=== PATIENT | female | born 1955 | race Caucasian/White ===

== ENCOUNTER 2020-11-18 12:59 | Emergency (ER) | payer OTHER, SELFPAY ==
[2020-11-18 13:08] VITALS: BP 122/71; PULSE 87; RESP 14; TEMP 36.7; O2SAT 98
[2020-11-18 13:29] VITALS: BP 122/71; PULSE 87; RESP 14; TEMP 36.7; O2SAT 98
--- NOTE | 2020-11-18 14:08 | ED.FEMALEGU ---
HPI - Female Genitourinary General Chief complaint: Urogenital-Female Stated complaint: Headache, rapid pulse, shortness of breath Time Seen by Provider: 11/18/20 14:09 Source: patient and RN notes reviewed Mode of arrival: ambulatory Limitations: no limitations History of Present Illness HPI Narrative: 65-year-old female presents with concern for urinary tract infection and possible reaction to Macrobid. Reports she called her physician and was prescribed Macrobid over the phone for possible urinary tract infection. She did not leave urine sample or have a culture for that diagnosis. She reports after taking 1 dose she had fast heartbeat, headache, shortness of breath for short period of time. She did not take any subsequent doses of Macrobid. She reports dysuria, frequency, urgency, difficulty urinating. She denies abdominal pain, fever, back pain. MD elicited complaint: UTI Related Data Home Medications Medication Instructions Recorded Confirmed amlodipine 5 mg PO DAILY 11/18/20 11/18/20 cholecalciferol (vitamin D3) 125 mcg PO DAILY 11/18/20 11/18/20 [Vitamin D3] clonidine HCl 0.2 mg PO DAILY 11/18/20 11/18/20 losartan 50 mg PO DAILY 11/18/20 11/18/20 Allergies Allergy/AdvReac Type Severity Reaction Status Date / Time codeine Allergy Intermediate Agitated Verified 11/18/20 13:26 nitrofurantoin Allergy Mild Fast Verified 11/18/20 14:23 [From Macrobid] heartbeat Review of Systems Review of Systems: CONSTITUTIONAL: Denies malaise, chills, sweats, or fever. CARDIOVASCULAR: Denies current chest pain, current palpitations, or edema.. Reports ago fast heartbeat yesterday. RESPIRATORY: Denies cough. Reports episode of dyspnea yesterday. GASTROINTESTINAL: Denies abdominal pain, nausea, vomiting, diarrhea, bloody, or mucous stools. GENITOURINARY: Reports dysuria frequency, urgency. Denies flank pain hematuria. MUSCULOSKELETAL: Denies back pain or myalgia. NEUROLOGIC: Reports headache. All systems reviewed & are unremarkable except as noted in HPI and below PMFSH Past Medical History Medical History (Updated 11/18/20 @ 14:21 by Nohemi Mackay NP) Anxiety Arthritis Depression Endometriosis GERD (gastroesophageal reflux disease) HTN (hypertension) Migraines Post-menopausal Seasonal allergies Surgical History Surgical History History of appendectomy History of cholecystectomy History of tubal ligation Family History Family History Mother Family history of lung cancer Father Family history of emphysema Sibling Family history of emphysema Social History Social History Alcohol intake: never Comments At time of signature, agree with nursing past medical, surgical, social and family history. There is no relevant family history pertinent to the presenting complaint Exam Narrative: GENERAL: Well-appearing, well-nourished, and in no acute distress. HEAD: Normocephalic. EYES: PERRLA, conjunctivae clear. NECK: Supple. No lymphadenopathy CHEST: Clear to auscultation. No respiratory distress. HEART: Regular rate and rhythm. ABDOMEN: Soft, nontender upon palpation, nondistended, normal active bowel sounds, no palpable or pulsatile masses, no guarding. No CVA tenderness SKIN: Warm, dry, no rash. NEURO: Alert and oriented x3. PSYCH: Normal mood and affect Course Course Emergency Course: Patient took a dose of abx, which may affect test results. Patient is aware of diagnosis, understands and agrees to treatment plan. Anticipatory guidance given. Patient agrees to follow-up as directed and is aware of reasons to seek care at the emergency department. Portions of this record may have been created with voice recognition software Vital Signs Vital signs: Vital Signs Temperature 98.1 F 11/18/20 13:08 Pulse Rate 87 11/18/20
== END 2020-11-18 14:39 | disposition home or self-care (01) ==
PROVIDERS: Emergency Provider Nurse Practitioner; PCP Nurse Practitioner Family
DX: R35.0 Frequency of micturition (principal); R30.0 Dysuria; R39.15 Urgency of urination; M19.90 Unspecified osteoarthritis, unspecified site; N80.9 Endometriosis, unspecified; K21.9 Gastro-esophageal reflux disease without esophagitis; I10 Essential (primary) hypertension
CPT/HCPCS: 81003; 87086; 87088; 99213; G0463

== ENCOUNTER 2022-05-05 12:21 | Emergency (ER) | payer OTHER, SELFPAY ==
--- NOTE | 2022-05-05 12:27 | ED.URI ---
HPI - URI/Sore Throat General Chief Complaint: Upper Respiratory Infection Stated Complaint: cold/ cough Time Seen by Provider: 05/05/22 12:27 Source: patient and RN notes reviewed History of Present Illness HPI Narrative: patient is a 66-year-old female who presents to the Urgent Care with complaints of persistent cough. Patient states has been ongoing for the last few days and she has been unable to sleep due to the harsh coughing. Patient has been using an old inhaler from 2019. Denies any ill exposures. Denies any chest tightness, fever, nausea or vomiting. No other acute complaints. No acute distress noted. Patient aware of the plan of care. Some parts of this dictation were generated by voice recognition software and may contain typographical and/or grammatical inaccuracies. Related Data Home Medications Medication Instructions Recorded Confirmed amlodipine 5 mg tablet 5 mg PO DAILY 11/18/20 05/05/22 cholecalciferol (vitamin D3) 125 125 mcg PO DAILY 11/18/20 05/05/22 mcg (5,000 unit) tablet (Vitamin D3) clonidine HCl 0.2 mg tablet 0.2 mg PO DAILY 11/18/20 05/05/22 losartan 50 mg tablet 50 mg PO DAILY 11/18/20 05/05/22 aspirin 81 mg capsule 81 mg PO DAILY 05/05/22 05/05/22 Allergies Allergy/AdvReac Type Severity Reaction Status Date / Time codeine Allergy Intermediate Agitated Verified 05/05/22 12:47 nitrofurantoin Allergy Mild Fast Verified 05/05/22 12:47 [From Macrobid] heartbeat Review of Systems Review of Systems: CONSTITUTIONAL: Denies fever, chills, or sweats. EYES: Denies visual changes, redness, or discharge. ENT: Denies rhinorrhea, congestion, sore throat, or otalgia. CARDIOVASCULAR: Denies chest pain, palpitations, or edema. RESPIRATORY: Reports persistent cough without dyspnea GASTROINTESTINAL: Denies abdominal pain, nausea, vomiting, or diarrhea. GENITOURINARY: Denies dysuria or hematuria. SKIN: Denies rash or itching. MUSCULOSKELETAL: Denies back pain, joint pain, or myalgia. NEUROLOGIC: Denies headache, numbness, or weakness. All other systems reviewed are negative, except as documented in HPI. [facility] Past Medical History Medical History (Updated 05/05/22 @ 13:07 by MANNY Wiseman) Anxiety Arthritis Depression Endometriosis GERD (gastroesophageal reflux disease) HTN (hypertension) Migraines Post-menopausal Seasonal allergies Surgical History Surgical History History of appendectomy History of cholecystectomy History of tubal ligation Family History Family History Mother Family history of lung cancer Father Family history of emphysema Sibling Family history of emphysema Social History Social History Alcohol intake: never Comments At the time of my signature, I reviewed and agree with the nursing past medical, surgical, social, and family history. There is no relevant family history pertinent to the patient complaint. Exam Narrative: GENERAL: This is a well-nourished, well-developed patient, in no apparent distress. HEAD: normocephalic, atraumatic. EYES: PERRL. Sclera clear/white. Vision is grossly intact. EARS: External ears normal, auditory canals clear and without drainage, TMs normal without perforation. Hearing grossly intact. NOSE: External nose normal with no obvious nasal discharge, nares without redness, no rhinorrhea. THROAT: Mucous membranes moist, posterior pharynx clear. moderate postnasal drainage NECK: Neck supple, non-tender without lymphadenopathy RESPIRATORY: Clear to auscultation. slight inspiratory wheeze clears with coughing SKIN: warm, intact with no suspicious lesions or rash, good texture and turgor. NEURO: awake, alert, and oriented to person, place and time. There were no obvious focal neurologic abnormalities. EXTREMITIES: No clubbing, cyanosis, or ellen
[2022-05-05 12:32] VITALS: BP 132/69; PULSE 81; RESP 20; TEMP 36.6; O2SAT 98
== END 2022-05-05 13:14 | disposition home or self-care (01) ==
PROVIDERS: Emergency Provider Nurse Practitioner Family; PCP Nurse Practitioner Family
DX: J40 Bronchitis, not specified as acute or chronic (principal); N80.9 Endometriosis, unspecified; K21.9 Gastro-esophageal reflux disease without esophagitis; I10 Essential (primary) hypertension; Z79.82 Long term (current) use of aspirin
CPT/HCPCS: 99213; G0463

== ENCOUNTER 2022-08-20 16:48 | Emergency (ER) | payer MEDICARE, MEDICAID, SELFPAY ==
[2022-08-20 16:56] VITALS: BP 141/80; PULSE 99; RESP 20; TEMP 37.2; O2SAT 98
--- NOTE | 2022-08-20 17:08 | ED.URI ---
HPI - URI/Sore Throat General Chief Complaint: Upper Respiratory Infection Stated Complaint: sore throat Time Seen by Provider: 08/20/22 17:08 History of Present Illness HPI Narrative: PATIENT PRESENTS WITH A SORE THROAT. NO TROUBLE SWALLOWING NO DROOLING NO FEVER. PATIENT IS CURRENTLY ON MACROBID FOR URINARY TRACT INFECTION. Related Data Home Medications Medication Instructions Recorded Confirmed amlodipine 5 mg tablet 5 mg PO DAILY 11/18/20 05/05/22 cholecalciferol (vitamin D3) 125 125 mcg PO DAILY 11/18/20 05/05/22 mcg (5,000 unit) tablet (Vitamin D3) clonidine HCl 0.2 mg tablet 0.2 mg PO DAILY 11/18/20 05/05/22 losartan 50 mg tablet 50 mg PO DAILY 11/18/20 05/05/22 aspirin 81 mg capsule 81 mg PO DAILY 05/05/22 05/05/22 nitrofurantoin 08/20/22 monohydrate/macrocrystals 100 mg capsule Allergies Allergy/AdvReac Type Severity Reaction Status Date / Time codeine Allergy Intermediate Agitated Verified 05/05/22 12:47 nitrofurantoin Allergy Mild Fast Verified 05/05/22 12:47 [From Macrobid] heartbeat Review of Systems Review of Systems: CONSTITUTIONAL: DENIES CHILLS, OR SWEATS. REPORTS FEVER AND GENERALIZED BODY ACHES EYES: DENIES VISUAL CHANGES, REDNESS, OR DISCHARGE. ENT: DENIES OTALGIA. REPORTS NASAL CONGESTION RUNNY NOSE AND SORE THROAT CARDIOVASCULAR: DENIES CHEST PAIN, PALPITATIONS, OR EDEMA. RESPIRATORY: DENIES DYSPNEA. REPORTS OCCASIONAL COUGH GASTROINTESTINAL: DENIES ABDOMINAL PAIN, NAUSEA, VOMITING, OR DIARRHEA. GENITOURINARY: DENIES DYSURIA OR HEMATURIA. SKIN: DENIES RASH OR ITCHING. MUSCULOSKELETAL: DENIES BACK PAIN, JOINT PAIN, OR MYALGIA. REPORTS GENERALIZED BODY ACHES NEUROLOGIC: DENIES HEADACHE, NUMBNESS, OR WEAKNESS. PSYCHIATRIC: DENIES ANXIETY OR DEPRESSION. [facility] Past Medical History Medical History (Updated 08/20/22 @ 17:19 by MANNY Alcaraz) Anxiety Arthritis Depression Endometriosis GERD (gastroesophageal reflux disease) HTN (hypertension) Migraines Post-menopausal Seasonal allergies Surgical History Surgical History History of appendectomy History of cholecystectomy History of tubal ligation Family History Family History Mother Family history of lung cancer Father Family history of emphysema Sibling Family history of emphysema Social History Social History Alcohol intake: never Comments AT TIME OF SIGNATURE, AGREE WITH NURSING PAST MEDICAL, SURGICAL, SOCIAL AND FAMILY HISTORY. THERE IS NO RELEVANT FAMILY HISTORY PERTINENT TO THE PRESENTING COMPLAINT Exam Narrative: THE PATIENT IS A WELL-DEVELOPED, WELL-NOURISHED IN NO ACUTE DISTRESS. SKIN: SKIN IS WARM AND DRY WITHOUT ERYTHEMA, SWELLING OR EXUDATE. THERE IS GOOD TURGOR. NO TENTING. HEAD: ATRAUMATIC. NORMOCEPHALIC. NO TEMPORAL OR SCALP TENDERNESS. EYES: MOIST AND BRIGHT. SCLERA AND CONJUNCTIVAE NORMAL. NO DISCHARGE. PERRLA. EXTRAOCULAR MOTIONS INTACT. GROSS VISUAL ACUITY INTACT. EARS: PINNA IS NORMAL SHAPE AND CONTOUR. CLEAR EXTERNAL AUDITORY CANALS. TM PEARLY STOCKTON WITH GOOD CONE OF LIGHT, NO ERYTHEMA OR SUPPURATION. BILATERAL CERUMEN NOTED NO GROSS HEARING DEFICIT. NOSE: PINK, MOIST MUCOSA WITH GOOD AIR MOVEMENT. CLEAR RHINORRHEA WITHOUT NASAL FLARING. SEPTUM MIDLINE. MOUTH: MOIST MUCOUS MEMBRANES. THROAT; MILD ERYTHEMA NOTED TO POSTERIOR OROPHARYNX WITH MODERATE POSTNASAL DRAINAGE. WITHOUT EXUDATE OR ULCERATION.. UVULA MIDLINE. NORMAL MOVEMENT OF SOFT PALATE. NECK: SUPPLE AND NONTENDER WITH FULL RANGE OF MOTION WITHOUT DISCOMFORT. NO MENINGEAL SIGNS. LUNGS: EQUAL AND BILATERAL BREATH SOUNDS WITHOUT WHEEZES, RALES OR RHONCHI. CHEST: THE CHEST WALL IS WITHOUT RETRACTIONS OR USE OF ACCESSORY MUSCLES. HEART: HAS A REGULAR RATE AND RHYTHM WITHOUT MURMUR, GALLOPS, CLICK OR RUB. ABDOMEN: SOFT, NONTENDER WITH POSITIVE ACTIVE BOW
== END 2022-08-20 17:25 | disposition home or self-care (01) ==
PROVIDERS: Emergency Provider Nurse Practitioner Family; PCP Nurse Practitioner Family
DX: J02.0 Streptococcal pharyngitis (principal); N39.0 Urinary tract infection, site not specified; I10 Essential (primary) hypertension
CPT/HCPCS: 87081; 87880; 99213; G0463

== ENCOUNTER 2022-11-22 11:16 | Emergency (ER) | payer OTHER, SELFPAY ==
--- NOTE | ~2022-11-22 | XR_ITS ---
EXAMINATION: XR chest 2V DATE: 11/22/2022 11:55 INDICATION: Shortness of breath. Chest pain. TECHNIQUE: Frontal and lateral views of the chest were obtained. COMPARISON: Chest radiograph dated 06/20/2017 FINDINGS: Elevation the left hemidiaphragm. Opacities at the bilateral costophrenic angles and favor atelectasi s over pneumonia. No pulmonary edema, pleural effusion or pneumothorax. The cardiomediastinal silhoue tte is normal. Thoracic dextrocurvature with moderate spondylosis. A couple surgical clips in the abd omen. IMPRESSION: 1. Opacities in the bilateral costophrenic angles and would favor atelectasis over pneumonia. A porti on of the opacity right costophrenic angle has a somewhat nodular appearance and would recommend ei er follow-up radiograph to document resolution or chest CT for further evaluation. Reviewed, dictated and finalized at location L. IMPRESSION: 1. Opacities in the bilateral costophrenic angles and would favor atelectasis o lissette pneumonia. A portion of the opacity right costophrenic angle has a somewhat nodular appearance and would recommend either follow-up radiograph to document resolution or chest CT for further evaluation.
[2022-11-22 11:22] VITALS: BP 120/78; PULSE 79; RESP 20; TEMP 36.3; O2SAT 98
--- NOTE | 2022-11-22 11:31 | ECG_ITS ---
Measurements Intervals [place] Rate: 73 P: 51 HI: 155 QRS: -18 QRSD: 78 T: 78 QT: 408 QTc: 450 Interpretive Statements SINUS RHYTHM NONSPECIFIC T-WAVE ABNORMALITY ABNORMAL ECG NO PREVIOUS ECG AVAILABLE FOR COMPARISON Electronically Signed On 11-23-2022 9:15:54 CDT by Oswaldo Natarajan M.D.
--- NOTE | 2022-11-22 11:32 | ED.GENADULT ---
HPI - General Adult General Chief complaint: Shortness of Breath/Dyspnea Stated complaint: Shortness of Breath/ Source: patient and RN notes reviewed History of Present Illness HPI narrative: 67 yo F presents to urgent care with pain to her right rib area, right mid chest, and right mid back. Pt states this pain is much worse with inhalation. Pt staets this pain started last night about midnight. Pt was unable to sleep due to discomfort and states it was worse when she was lying flat. Pt denies any recent illness, congestion, cough, fevers, chills, or abdominal pain. Denies any vomiting. Denies any injury but states she had her 2 yr old granddaughter yesterday and doesn't know if she strained a muscle while picking her up or something. 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 Related Data Home Medications Medication Instructions Recorded Confirmed amlodipine 5 mg tablet 5 mg PO DAILY 11/18/20 11/22/22 cholecalciferol (vitamin D3) 125 125 mcg PO DAILY 11/18/20 11/22/22 mcg (5,000 unit) tablet (Vitamin D3) clonidine HCl 0.2 mg tablet 0.2 mg PO DAILY 11/18/20 11/22/22 losartan 50 mg tablet 50 mg PO DAILY 11/18/20 11/22/22 aspirin 81 mg capsule 81 mg PO DAILY 05/05/22 11/22/22 Allergies Allergy/AdvReac Type Severity Reaction Status Date / Time codeine Allergy Intermediate Agitated Verified 11/22/22 11:33 nitrofurantoin Allergy Mild Fast Verified 11/22/22 11:33 [From Macrobid] heartbeat Review of Systems Review of Systems: CONSTITUTIONAL: Denies fever, chills, or sweats. EYES: Denies visual changes, redness, or discharge. ENT: Denies otalgia and sore throat CARDIOVASCULAR: Right sided chest pain with breathing RESPIRATORY: painful breathing GASTROINTESTINAL: Denies abdominal pain, nausea, vomiting, or diarrhea. GENITOURINARY: Denies dysuria or hematuria. SKIN: Denies rash or itching. MUSCULOSKELETAL: Right upper back and right chest pain with breathing NEUROLOGIC: Denies headache, numbness, or weakness. Pertinent positives per HPI. [facility] Past Medical History Medical History (Updated 11/22/22 @ 12:17 by Maty Quintanilla, KENNETH) Anxiety Arthritis Depression Endometriosis GERD (gastroesophageal reflux disease) HTN (hypertension) Migraines Post-menopausal Seasonal allergies Surgical History Surgical History History of appendectomy History of cholecystectomy History of tubal ligation Family History Family History Mother Family history of lung cancer Father Family history of emphysema Sibling Family history of emphysema Social History Social History Alcohol intake: never Comments At the time of my signature, I reviewed and agree with the nursing past medical, surgical, social, and family history. There is no relevant family history pertinent to the patient complaint. Exam Narrative: GENERAL: This is a well-nourished, well-developed patient. Pt appears to be in distress when she inhales deeply. HEAD: normocephalic, atraumatic. EYES: Sclera clear/white. Vision is grossly intact. EARS: External ears normal, auditory canals clear and without drainage. Hearing grossly intact. NOSE: External nose normal with no obvious nasal discharge, nares without redness, no rhinorrhea. THROAT: Mucous membranes moist, posterior pharynx clear. NECK: Neck supple, non-tender without lymphadenopathy, masses or thyromegaly. CARDIOVASCULAR: Regular rate and rhythm without murmurs, gallops, or rubs. RESPIRATORY: Clear to auscultation. Breath sounds equal bilaterally. No wheezes, rales, or rhonchi. GASTROINTESTINAL: Abdomen soft, non-tender, nondistended. Bowel sounds are active. No hepato-splenomegaly, or palpable masses. No guarding. SKIN: warm, intact with no suspicious lesions or rash, good texture and turgor. NEURO: awake, alert, and oriented to
== END 2022-11-22 12:21 | disposition home or self-care (01) ==
PROVIDERS: Emergency Provider Nurse Practitioner Family; PCP Nurse Practitioner Family
DX: J18.1 Lobar pneumonia, unspecified organism (principal); R91.8 Other nonspecific abnormal finding of lung field; M19.90 Unspecified osteoarthritis, unspecified site; N80.9 Endometriosis, unspecified; K21.9 Gastro-esophageal reflux disease without esophagitis; I10 Essential (primary) hypertension; Z79.82 Long term (current) use of aspirin
CPT/HCPCS: 71046; 93005; 99213; G0463

== ENCOUNTER 2024-07-21 10:38 | Emergency (ER) | payer MEDICARE, SELFPAY ==
--- OUTSIDE RECORDS SUMMARY | 2024-07-21 10:41 | XMS_ITS | Referral Summary ---
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 Name Role Phone Nunu Casillas NP Primary Care Provider Encounters Date Type Department Care Team Description 05/24/2024 Telephone [facility] [address] [place] [address] Levon Myers MD from Last 3 Months Allergies Active Allergy Reactions Criticality Noted Date Comments Codeine Medications aspirin 81 mg enteric coated tabletIndications:C erebral Thromboembolism Prevention Take 1 tablet (81 mg total) by mouth daily 30 tablet 10/26/19 19 Active amLODIPine (NORVASC) 5 mg tabletIndications:h ypertension Take 1 tablet (5 mg total) by mouth daily 30 tablet 10/25/19 19 Active losartan (COZAAR) 25 mg tabletIndications:h ypertension Take 1 tablet (25 mg total) by mouth daily 30 tablet 10/25/19 19 Active ibuprofen (ADVIL,MOTRIN) 600 mg tablet Take 1 tablet (600 mg total) by mouth every 6 (six) hours as needed for pain 30 tablet 02/24/20 19 Active Additional Information Patient not taking.Reported on 05/24/[address] (CYMBALTA) 20 mg capsule Take by mouth daily 10/07/19 23 Active amoxicillin-clavula lianet (AUGMENTIN) 875-125 mg per tablet 11/23/19 23 Active Active Problems Problem Noted Date Diagnosed Date Single subsegmental pulmonar y embolism without acute cor pulmonale 11/24/2022 Community acquired pneumonia of right lower lobe of lung 11/24/2022 Encounter for screening colonoscopy 06/19/2020 Overview (06/19/2020): Added automatically from request for surgery [id number] Mild cognitive impairment 10/23/2018 Assessment & Plan (10/23/2018 6:39 AM CDT): Patient had an episode of transient memory loss cannot recall the event prior to arrival. CT of the head was negative Neurological exam nonfocal. Neurology was consulted. Will follow up with recommendations. Differential diagnosis certainly will be UTI encephalopathy versus hypertensive encephalopathy versus possible seizure Neurology consulted. Will follow up with recommendations MRI pending in a.m.. Tension type headache 10/23/2018 Assessment & Plan (10/23/2018 6:39 AM CDT): Blood pressure control. Will start on Tylenol as needed Acute cystitis without hematuria 10/23/2018 Assessment & Plan (10/23/2018 6:40 AM CDT): Will start on Macrobid and align Follow up with urine culture Monitor daily CBC Monitor kidney function with daily BMP Anxiety 08/22/2017 Assessment & Plan (08/22/2017 9:39 AM CDT): I think vertigo is secondary to anxiety that is being caused by pending job loss and some of the discrimination issues she is having at work. She hasn't used the ativan but once since it was given to her in June. I told her that she should try to take that if she is having the room spinning dizziness when she is lying down. For now we will keep blood pressure medication the same. She is concerned as the losartan is not on the low cost medication list at [facility]. She is going to [facility] a 30 day [facility] and I told her we will work with her to find an affordable blood pressure medication if she cannot afford the losartan. Fracture follow-up 10/28/2016 Atopic rhinitis 08/14/2012 Overview (07/21/2016): Allergic rhinitis due to allergen Benign hypertension 08/14/2012 Overview (07/22/2016): Benign hypertension Assessment & Plan (10/23/2018 6:37 AM CDT): Patient received 1 dose of hydralazine in the ED. Blood pressure currently remained stable. Continue with home medications with amlodipine and losartan. Continue monitoring Altered mental status Immunizations Immunization Administration Dates Next Due Influenza, Quadrivalent, Split, Intramuscular Influenza, Trivalent, Preservative Free, Intramu scular 01/30/2012 Social History Tobacco Use Types Packs/Day Years Used Date Smoking Tobacco: Former Smokeless Tobacco: Never Tobacco Cessation:Counseling Given: Not Answered Alcohol Use Standard Drinks/Week Comments No 0 (1 standard drink = 0.6 oz pur e alcohol) AUDIT-C Answer Date Recorded Q1: How often do you have a drink containing alcohol? Never 11/24/2022 Q2: How many drinks containi ng alcohol do you have on a typical day when you are drinking? Patient does not drink Q3: How often do you have si x or more drinks on one occasion? 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[employer] Gender Identity Not on file Sexual Orientation Not on file Last Filed Vital Signs Vital Sign Reading Time Taken Comments Blood Pressure 128/76 11/25/2022 5:57 AM CDT Pulse 79 11/25/2022 5:57 AM CDT Temperature 36.2 C (97.1 F) 11/25/2022 5:57 AM CDT Respiratory Rate 16 11/25/2022 5:57 AM CDT Oxygen Saturation 96% 11/25/2022 5:57 AM CDT Inhaled Oxygen Concentration - - Weight 85.5 kg (188 lb 6.4 oz) 11/24/2022 5:31 A M CDT Height 167.6 cm (5' 6 ) 11/24/2022 5:30 AM CDT Body Mass Index 30.41 11/24/2022 5:30 AM CDT Plan of Treatment Not on file Insurance [employer] [facility] MEDICARE [facility] [place] Advance Directives For more information, please contact: [phone] * Full Code (Latest Code Status on File) Date Activated Date Inactivated Comments 11/24/2022 8:58 AM 11/25/2022 4:27 PM * Full Code Date Activated Date Inactivated Comments 10/22/2018 8:07 PM 10/24/2018 7:49 PM Care Teams Welder Setter Electron Beam Machine Relationship Specialty Start Date End Date Nunu Casillas NP [address] [place] [address] PCP - General 02/23/19
--- OUTSIDE RECORDS SUMMARY | 2024-07-21 10:41 | XMS_ITS | Clinical Summary ---
Author Organization [facility] Address [address] [place] [address] Care Team Providers Care Cut Order Hand Name Role Phone Nunu Casillas NP Primary Care Provider Allergies Active Allergy Reactions Criticality Noted Date [...] (06/19/2020): Added automatically from request for surgery [id number] Mild cognitive impairment 10/23/2018 Assessment & Plan [...] on the low cost medication list at [facility]. She is going to barreto a 30 [...] and losartan. Continue monitoring Altered mental status Encounters Date Type Department Care Team Description 05/24/2024 Telephone [facility] [address] [facility] [place] [address] Levon Myers MD from Last 3 Months Immunizations Immunization Administration Dates Next Due Influenza, Quadrivalent, Split, Intramuscular Influenza, Trivalent, Preservative Free, Intramu scular 01/30/2012 Surgical History Surgery Date Site/Laterality Comments TUBAL LIGATION 04/17/1991 - 04/16/1992 Bilateral tubal ligation CHOLECYSTECTOMY 04/17/2010 - 04/16/2011 Cholecystectomy TONSILLECTOMY 04/17/1967 - 04/16/1968 Tonsillectomy APPENDECTOMY 04/17/1963 - 04/16/1964 Appendectomy COLONOSCOPY 08/24/2017 Medical History Medical History Date Comments Arthritis Hypertension Headache, tension-type Migraine Family History Medical History Relation Name Comments Cancer Brother COPD Father COPD; Coronary artery disease Father Hu nary artery disease; Hypertension Father Hypertension; Osteoporosis Father Osteoporosis; Coronary artery disease Mother Hu nary artery disease, premature; Other Mother pericardial eff usion; Cause of : pericardial effusion Other Sister 1 Cancer - urethr al; COPD Sister 2 COPD; Relation Name Status Comments Brother Father Mother (Age 57) Sister 1 Sister 2 Social History Tobacco Use Types Packs/Day Years [...] on file 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[employer] Gender Identity Not on file Sexual Orientation Not on file Obstetrics History Last Filed Vital Signs Vital Sign Reading [...] 11/24/2022 5:30 AM CDT Plan of Treatment Health Maintenance Due Date Last Done Comments Colon Cancer Screening-Colonoscopy 1955 Hepatitis C Screening 1955 Osteoporosis Screening-Bone Density Scan 1955 Pneumococcal vaccine 65+ (1 of 1 - PCV) 06/25/2007 Zoster Vaccine (1 of 2) 06/25/2007 Depression Screening 10/23/2019 10/22/2018, 06/24/19 18 Well Visit 65+ 2022 Fall Risk Assessment 11/26/2023 11/25/2022 Breast Cancer Screening-Mammogram 03/07/2024 03/07/2023, 03/07/2023, 02/09/2022 DTaP/Tdap/Td Vaccine (2 - Td or Tdap) 03/07/2024 Influenza Vaccine (Season Ended) 2024 12/30/2014, 03/07/2014, 01/30/2012 Hepatitis B Screening Completed 03/12/2014 Insurance [employer] MEDICARE AETNA [facility] MEDICARE [facility] [place] [place] Advance Directives For more information, please contact: [phone] * Full Code (Latest Code Status on File) Date Activated Date Inactivated Comments 11/24/2022 8:58 AM 11/25/2022 4:27 PM * Full Code Date Activated Date Inactivated Comments 10/22/2018 8:07 PM 10/24/2018 7:49 PM Care Teams Cut Order Hand Relationship Specialty Start Date End Date Nunu Casillas NP [address] [place] [address] PCP - General 02/23/19
--- OUTSIDE RECORDS SUMMARY | 2024-07-21 10:42 | XMS_ITS | Clinical Summary ---
Author Organization [facility] Address [address] [facility] [place] [address] Care Team Providers Care Director Of Event Sales Name Role Phone Casillas, Nunu COOPER CNP Primary Care Provider [phone] Bee Chappell RN Unavailable Unavaila ble Rao Montano MD Unavailable Unavai lable Allergies Active Allergy Reactions Criticality Noted Date Comments Codeine Hallucinations 01/27/2022 Medications amLODIPine (NORVASC) 5 MG Tablet Take 5 mg by mouth daily. 11/29/2021 Active losartan (COZAAR) 50 MG Tablet Take 50 mg by mouth daily. 11/29/2021 Active cloNIDine (CATAPRES) 0.1 MG Tablet TAKE 1/2 TABLET BY MOUTH DAILY AT BEDTIME 11/29/2021 Active aspirin EC 81 MG Tablet Delayed Response Take 81 mg by mouth. 10/25/2018 Active D-3-5 5000 UNIT Capsule Take 125 mcg by mouth daily. 11/15/2021 Active DULoxetine (CYMBALTA) [address] Particles Take 20 mg by mouth daily. 01/06/2023 Active Xarelto 20 MG Tablet Take 20 mg by mouth daily. 01/02/2023 Active Family History Medical History Relation Name Comments Cancer Brother High Cholesterol Father Hypertension Father Cancer Mother Cancer Sister Relation Name Status Comments Brother Father Mother Sister Social History Tobacco Use Types Packs/Day Years Used Date Smoking Tobacco: Never Smokeless Tobacco: Never Tobacco Cessation:Counseling Given: Not Answered Alcohol Use Standard Drinks/Week Comments Never 0 (1 standard drink = 0.6 oz pur e alcohol) Comments No Sex and Gender Information Value Date Recorded Sex Assigned at Not on file Legal Sex Female 10:30 AM CDT Gender Identity Not on file Sexual Orientation Not on file Last Filed Vital Signs Vital Sign Reading Time Taken Comments Blood Pressure 112/78 01/26/2023 8:46 AM CDT Pulse 77 01/26/2023 8:46 AM CDT Temperature 36.3 C (97.4 F) 01/26/2023 8:46 AM CDT Respiratory Rate 22 01/26/2023 8:46 AM CDT Oxygen Saturation 99% 01/26/2023 8:4 6 AM CDT Inhaled Oxygen Concentration - - Weight 84.8 kg (187 lb) 01/26/2023 8:46 AM CDT BMI incorrect due to technical error Height 167.6 cm (5' 6 ) 01/26/2023 8:46 AM CDT BMI incorrect due to technical error Body Mass Index 30.18 01/26/2023 8:46 AM CDT Plan of Treatment Upcoming Encounters Date Type Department Care Team (Late st Contact Info) Description 09/17/2024 2:00 PM CDT Office Visit [facility] - Neurology [facility] [address] [place] [address] Gurmeet Villeda MD [address] [place] [address] Health Maintenance Due Date Last Done Comments DEXA Bone Density 1955 Hepatitis C Virus (HCV) Screening 1955 Colonoscopy 2002 Colorectal Cancer Screening 2002 Cologuard 06/25/2007 Immunochemical Fecal Occult Blood 06/25/2007 Zoster Immunization (1 of 2) 06/25/2007 Hepatitis B Immunization (2 of 3 - Hep B Twinrix 3-dose series) 04/09/2014 03/12/2014 SARS-COV-2 Immunization ( - season) 2023 Mammogram 03/07/2024 03/07/2023, 02/09/2022 Respiratory Syncytial Virus (RSV) Immunization (Adult) (1 - 1-dose 75+ series) 2032 DTaP/Tdap/Td Immunization Discontinued 03/07/2014 TdaP Immunization Completed 03/07/2014 Pneumococcal Immunization (50+ years) Completed 01/02/2023 Pneumococcal Immunization Combined Discontinued 01/02/2023 Influenza Immunization Completed , 12/30/2014, 03/07/2014, Additional history exists Meningococcal Immunization (ACWY) Aged Out No longer eligible based on patient's age to complete this topic Rotavirus Immunization Aged Out No lo nger eligible based on patient's age to complete this topic Procedures Procedure Name Priority Date/Time Associated Diagnosis Comments KULDEEP DIAG BILATERAL DIGITAL W CAD W HEAVEN Routine 03/07/2023 10:35 AM EQUITY RESEARCH ASSOCIATE Other abnormal and inconclusive findings on diagnostic imaging of breast from Last 3 Months or Most Recently Relevant to Health Maintenance Results * KULDEEP DIAG BILATERAL DIGITAL W CAD W HEAVEN (03/07/2023 10:35 AM EQUITY RESEARCH ASSOCIATE) Anatomical Region Laterality Modality breast Bilateral Mammography 03/07/2023 9:51 AM EQUITY RESEARCH ASSOCIATE Narrative 03/07/2023 2:51 PM EQUITY RESEARCH ASSOCIATE - KULDEEP DIAG BILATERAL DIGITAL W CAD W HEAVEN - KULDEEP US BREAST LIMITED RT BILATERAL DIGITAL DIAGNOSTIC MAMMOGRAM 3D/2D WITH CAD WITH MEDIOLATERAL OBLIQUE CRANIOCAUDAL AND TARGETED RIGHT ULTRASOUND: 03/07/2023 The study was acquired using digital technology and interpreted from soft copy. Current study was also evaluated with ICAD version 7.2. 2D digital mammographic views, as well as 3D digital tomosynthesis were performed in the CC and MLO projections. CLINICAL: Diagnostic study. Patient returns for a 1 year follow-up right breast. Left annual study due. No personal history of cancer. No family history of breast cancer. COMPARISONS: Comparison is made to exams dated: 02/09/2022, 03/04/2022, and 09/06/2022 [facility]. BREAST TISSUE:There are scattered fibroglandular densities in both breasts. FINDINGS: DIAGNOSTIC BILATERAL MAMMOGRAM Again identified in the upper right breast are 2 nodular focal asymmetries that appear unchanged. A 3rd nodular focus is appreciated at the 9 o'clock position of the right breast. These are circumscribed without suspicious associated microcalcifications. No other significant masses or calcifications are seen in either breast on the mammogram. TARGETED RIGHT BREAST ULTRASOUND Targeted right breast ultrasound was performed in the region of interest. Again identified at the 11 o'clock position 3 cm from the nipple are 2 small hypoechoic lesions. The 1st measures 5 mm. The 2nd measures 3 mm. These likely represent complicated cysts and are unchanged. At the 11 o'clock position 8 cm from the nipple is a hypoechoic oval lesion measuring 4 mm. This is also not significantly changed. At the 9 o'clock position 6 cm from the nipple are 2 adjacent anechoic simple cysts measuring 8 mm x 5 mm x 5 mm. There is posterior acoustical enhancement. There is no evidence of color flow. This correlates with the mammographic findings and is benign. IMPRESSION: OVERALL STUDY BIRADS: 3 PROBABLY BENIGN Lesions at the 11 o'clock position of the right breast are probably benign. A follow-up mammogram and an ultrasound in 12 months is recommended. The results and recommendations were discussed with the patient. Electronically signed by: Michelle Rooney M.D. ab/:03/07/2023 11:07:16 Employment Case Manager(s): RT Trupti(R)(M), [facility]; Deisi May, [facility] letter sent: Birad 3 Followup Reading location: [facility] OVERALL STUDY BIRADS: 3 Probably benign Procedure Note Michelle Rooney MD - 03/07/2023 - KULDEEP DIAG BILATERAL DIGITAL W CAD W HEAVEN - KULDEEP US BREAST LIMITED RT BILATERAL DIGITAL DIAGNOSTIC MAMMOGRAM 3D/2D WITH CAD WITH MEDIOLATERAL OBLIQUE CRANIOCAUDAL AND TARGETED RIGHT ULTRASOUND: 03/07/2023 The study was acquired using digital technology and interpreted from soft copy. Current study was also evaluated with ICAD version 7.2. 2D digital mammographic views, as well as 3D digital tomosynthesis were performed in the CC and MLO projections. CLINICAL: Diagnostic study. Patient returns for a 1 year follow-up right breast. Left annual study due. No personal history of cancer. No family history of breast cancer. COMPARISONS: Comparison is made to exams dated: 02/09/2022, 03/04/2022, and 09/06/2022 [facility]. BREAST TISSUE:There are scattered fibroglandular densities in both breasts. FINDINGS: DIAGNOSTIC BILATERAL MAMMOGRAM Again identified in the upper right breast are 2 nodular focal asymmetries that appear unchanged. A 3rd nodular focus is appreciated at the 9 o'clock position of the right breast. These are circumscribed without suspicious associated microcalcifications. No other significant masses or calcifications are seen in either breast on the mammogram. TARGETED RIGHT BREAST ULTRASOUND Targeted right breast ultrasound was performed in the region of interest. Again identified at the 11 o'clock position 3 cm from the nipple are 2 small hypoechoic lesions. The 1st measures 5 mm. The 2nd measures 3 mm. These likely represent complicated cysts and are unchanged. At the 11 o'clock position 8 cm from the nipple is a hypoechoic oval lesion measuring 4 mm. This is also not significantly changed. At the 9 o'clock position 6 cm from the nipple are 2 adjacent anechoic simple cysts measuring 8 mm x 5 mm x 5 mm. There is posterior acoustical enhancement. There is no evidence of color flow. This correlates with the mammographic findings and is benign. IMPRESSION: OVERALL STUDY BIRADS: 3 PROBABLY BENIGN Lesions at the 11 o'clock position of the right breast are probably benign. A follow-up mammogram and an ultrasound in 12 months is recommended. The results and recommendations were discussed with the patient. Electronically signed by: Michelle Rooney M.D. ab/:03/07/2023 11:07:16 Employment Case Manager(s): Minal Danielle RT(R)(M), [facility]; Deisi May, [facility] letter sent: Birad 3 Followup Reading location: [facility] OVERALL STUDY BIRADS: 3 Probably benign us Yadira Varela MD IMG MAMMO ORDERABLES Fin al Result from Last 3 Months or Most Recently Relevant to Health Maintenance Insurance MEDICARE C [employer]ET[employer] Care Teams Director Of Event Sales Relationship Specialty Start Date End Date Casillas, KENNETH Eddy CNP [address] [place] [address] PCP - General Family Medicine 12/22/21 Bee Chappell RN [place] Registered Nurse Cardiology 01/31/22 Rao Montano MD [place] Consulting Physician Cardiovascular Disease - Cardiology 01/13/23
--- OUTSIDE RECORDS SUMMARY | 2024-07-21 10:42 | XMS_ITS | Data Portability ---
Author Organization [facility] Jenkins Address [address] [place] [address] Care Team Providers Care Fisher Name Role Phone NUNU DOAN Primary Care Provider Unavailabl e Assessment No assessment recorded. Plan of Treatment Reminders Order Date Submit Date Provider Last Modified By Organization Details Last Modified Time Details Appointments ANY 15 2024 10:15A M Nunu Doan, PROTOTYPE DEICER ASSEMBLER, MORGUE LIBRARIAN-C Not available Not available Not available Lab CBC w/ auto diff 2024 025 [employer] [facility], [address] [place] [address], [address], 07/02/2024 11:02:12 CMP, serum or plasma 2024 025 [employer] [facility], [address] [place] [address], [place], [address], 07/02/2024 11:02:13 TSH, ultra-s ensitiv e, serum 2024 025 [employer] [facility], [address] [place] [address], [place], [address], 07/02/2024 11:02:13 lipid panel, serum 2024 025 [employer] [facility], [address] [place] [address], [place], [address], 07/02/2024 11:02:13 fecal occult blood, immunoa ssay, stool 2024 025 [facility], [address], [address], [place], [address], 06/11/2024 11:34:58 urinaly sis, dipstic k 2023 024 In-Office Order, Internal Use Only DO Not Attach Compendium DO Not Attach Compendium, Do Not Delete/merge, [id number] 02/08/2024 11:23:28 culture , urine 2023 024 [facility], [address] [facility], [address], [place], [address], 02/11/2024 03:06:57 fecal occult blood, immunoa ssay, stool 2022 023 [email or web address], [address], [address], [place], [address], 11/15/2023 11:34:32 Referral neurolo gist referra l 2023 024 [email or web address] Levon Myers MD, 4 [facility] , [address], [place], [address], 10/12/2023 11:04:42 Procedures None recorde d. Surgeries None recorde d. Imaging MRI, brain, w/wo contras t 2023 [facility]24 [facility] Scheduling, 1 [facility] [place], [address], 09/25/2023 12:51:08 XR, hip, unilate ral, 2 or 3 view 2023 024 [facility] Scheduling, 1 [facility] [place], [address], 08/17/2023 10:06:44 Medication Orders amlodip ine 5 mg tablet 2024 025 [facility] [address] In [facility], [place], [address], 06/11/2024 11:33:26 losarta n 25 mg tablet 2024 025 [facility] [address], [address], 06/11/2024 11:33:29 duloxet ine 20 mg capsule ,delaye d release 2024 025 [facility] [address], [address], 06/11/2024 11:35:57 Macrobi d 100 mg capsule 2023 025 [facility] [address], [address], 06/11/2024 11:12:32 amlodip ine 5 mg tablet 2023 024 [facility] [address], [address], 02/08/2024 11:23:34 losarta n 25 mg tablet 2023 024 [facility] [address], [address], 02/08/2024 11:23:35 duloxet ine 20 mg capsule ,delaye d release 2023 024 [facility] [address], [address], 02/08/2024 11:23:34 Xarelto 10 mg tablet 2023 025 [facility] [address], [address], 06/11/2024 11:12:33 amlodip ine 5 mg tablet 2023 024 [facility] [address] In [facility], [address] [place] [address], [address], 08/10/2023 16:27:45 losarta n 25 mg tablet 2023 024 [facility] [address], [address], 08/10/2023 16:27:45 duloxet ine 30 mg capsule ,delaye d release 2023 024 [facility] [address], [address], 06/11/2024 11:08:37 X[facility] 10 mg tablet [facility] [address], [address], 06/11/2024 11:12:18 amlodip ine 5 mg tablet 2022 023 [facility] [address], [address], 04/03/2023 16:15:41 losarta n 25 mg tablet 2022 023 [facility] [address], [address], 04/03/2023 11:01:19 duloxet ine 20 mg capsule ,delaye d release 2022 023 [facility] [address], [address], 08/10/2023 16:20:25 Xarelto 10 mg tablet 2022 023 [facility] [address], [address], 06/11/2024 11:12:18 Patient TargetsNo targets recorded. Patient Instructions Encounter Date Encounter Id Patient Instructions Last Modified By Organization Details Last Modified Time 04/03/2023 [id number] When You Want to Lose Weight: Care Instructions Not available 04/03/2023 11:01:01 low sodium diet (2,000 milligram): care instructions Not available 04/03/2023 11:01:02 high blood pressure: care instructions Not available 04/03/2023 11:01:01 pulmonary embolism: care instructions Not available 04/03/2023 11:01:01 Check blood pressure two or three times per week and record findings; bring to F/U appointment. [place] blood pressure is the top number below 140 and the bottom number below 90. If you experience any side effects of medication, call the office. Follow a low salt diet, drink at least 8-10 8oz glasses of water a day, exercise most days of the week. Not available 04/03/2023 10:51:05 f/u 4 months DWP barriers to care: none Not available 04/03/2023 11:01:32 08/10/2023 [id number] When You Want to Lose Weight: Care Instructions Not available 08/10/2023 16:27:45 low sodium diet (2,000 milligram): care instructions Not available 08/10/2023 16:27:45 high blood pressure: care instructions Not available 08/10/2023 16:27:45 pulmonary embolism: care instructions Not available 08/10/2023 16:27:45 Check blood pressure two or three times per week and record findings; bring to F/U appointment. [place] blood pressure is the top number below 140 and the bottom number below 90. If you experience any side effects of medication, call the office. Follow a low salt diet, drink at least 8-10 8oz glasses of water a day, exercise most days of the week. Not available 08/10/2023 16:16:44 f/u 4 months DWP barriers to care: none Not available 08/10/2023 16:22:27 08/28/2023 [id number] nasal septum repair: before your surgery Not available 08/28/2023 14:12:10 Make your home safer To avoid falling at home, get rid of things that might make you trip or slip. This might include furniture, electrical cords, clutter, and loose rugs. Keep your home well lit so that you can easily see where you are going. Avoid storing things in high places so you don't have to reach or climb. Wear sturdy shoes that fit well Wearing shoes with high heels or slippery soles, or shoes that are too loose, can lead to falls. Walking around in bare feet, or only socks, can also increase your risk of falling. Take vitamin D pills Taking vitamin D might lower the risk of falls in older people. This is because vitamin D helps make bones and muscles stronger. Your doctor can help you decide how much vitamin D to take. Stay active Exercising on a regular basis can help lower your risk of falling. It might also help prevent you from getting hurt if you do fall. It is best to do a few different activities that help with both strength and balance. There are many kinds of exercise that can be safe for older people. These include walking, swimming, and Yang Chi (a Greek martial art that involves slow, gentle movements). Use a cane, walker, and other safety devices If your doctor recommends that you use a cane or walker, be sure that it's the right size and you know how to use it. There are other devices that might help you avoid falling, too. These include grab bars or a sturdy seat for the shower, non-slip bath mats, and hand rails or treads for the stairs (to prevent slipping). If you worry that you could fall, there are also alarm buttons that let you call for help if you fall and can't get up. What should I do if I fall? If you fall, see your doctor right away, even if you aren't hurt. Your doctor can try to figure out what caused you to fall, and how likely you are to fall again. He or she will do an exam and talk to you about your health problems, medicines, and activities. Then he or she can suggest things you can do to avoid falling again. Not available 08/28/2023 14:10:17 f/u 3 months DWP barriers to care: none Not available 08/28/2023 14:10:13 02/08/2024 [id number] influenza (flu) vaccine: care instructions Not available 02/08/2024 11:25:05 When You Want to Lose Weight: Care Instructions Not available 02/08/2024 11:23:28 painful urinatio n (dysuria): care instructions Not available 02/08/2024 11:23:28 low sodium diet (2,000 milligram): care instructions Not available 02/08/2024 11:23:28 high blood pressure: care instructions Not available 02/08/2024 11:23:28 handicap placard information Not available 02/08/2024 11:23:28 pulmonary embolism: care instructions Not available 02/08/2024 11:23:28 Check blood pressure two or three times per week and record findings; bring to F/U appointment. [place] blood pressure is the top number below 140 and the bottom number below 90. If you experience any side effects of medication, call the office. Follow a low salt diet, drink at least 8-10 8oz glasses of water a day, exercise most days of the week. Not available 02/08/2024 11:13:29 f/u 4 months DWP barriers to care: none Not available 02/08/2024 11:13:30 06/11/2024 [id number] When You Want to Lose Weight: Care Instructions Not available 06/11/2024 11:32:53 low sodium diet (2,000 milligram): care instructions Not available 06/11/2024 11:32:53 high blood pressure: care instructions Not available 06/11/2024 11:32:53 pulmonary embolism: care instructions Not available 06/11/2024 11:32:53 Check blood pressure two or three times per week and record findings; bring to F/U appointment. [place] blood pressure is the top number below 140 and the bottom number below 90. If you experience any side effects of medication, call the office. Follow a low salt diet, drink at least 8-10 8oz glasses of water a day, exercise most days of the week. 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 Referring Physician: Nunu Doan, Family Medicine, Encounter Date: 08/28/2023 Results Created Date Observation Date Name Description Value Unit Range Abnormal Flag Note LastModifiedBy Organization Detail LastModifiedTime 08/28/19 24 08/29/2023 LIPID PANEL cholesterol, total 201 mg/dL 100-19 9 above high normal Not Available [facility] ([facility]) [address] [place], [address], 08/29/2023 14:12:16 08/28/19 24 08/29/2023 LIPID PANEL triglyceride s 157 mg/dL 0-149 above high normal Not Available [facility] ([facility]) [address] [place], [address], 08/29/2023 14:12:16 08/28/19 24 08/29/2023 LIPID PANEL HDL cholesterol 54 mg/dL >39 Not Available [facility] ([facility]) [address] [place], [address], 08/29/2023 14:12:16 08/28/19 24 08/29/2023 LIPID PANEL VLDL cholesterol abbi 28 mg/dL 5-40 Not Available [facility] ([facility]) [address] [place], [address], 08/29/2023 14:12:16 08/28/19 24 08/29/2023 LIPID PANEL LDL chol calc ([facility]) 119 mg/dL 0-99 above high normal Not Available [facility] ([facility]) [address] [facility] [place], [address], 08/29/2023 14:12:16 08/28/19 24 08/29/2023 COMP. METAB OLIC PANEL (14) glucose 96 mg/dL 70-99 Not Available [facility] ([facility]) [address] [facility], [place], [address], 08/29/2023 14:12:16 08/28/19 24 08/29/2023 COMP. METAB OLIC PANEL (14) BUN 11 mg/dL 8-27 Not Available [facility] ([facility]) [address] [facility], [place], [address], 08/29/2023 14:12:16 08/28/19 24 08/29/2023 COMP. METAB OLIC PANEL (14) creatinine 0.68 mg/dL 0.57-1 .00 Not Available [facility] ([facility]) [address] [facility], [place], [address], 08/29/2023 14:12:16 08/28/19 24 08/29/2023 COMP. METAB OLIC PANEL (14) eGFR 96 mL/mi n/1.7 3 >59 Not Available [facility] ([facility]) [address] [facility], [place], [address], 08/29/2023 14:12:16 08/28/19 24 08/29/2023 COMP. METAB OLIC PANEL (14) BUN/creatini ne ratio 16 12-28 Not Available [facility] ([facility]) [address] [facility], [place], [address], 08/29/2023 14:12:16 08/28/19 24 08/29/2023 COMP. METAB OLIC PANEL (14) sodium 140 mmol/ L 134-14 4 Not Available [facility] ([facility]) [address] [facility], [place], [address], 08/29/2023 14:12:16 08/28/19 24 08/29/2023 COMP. METAB OLIC PANEL (14) potassium 4.6 mmol/ L 3.5-5. 2 Not Available [facility] ([facility]) [address] [facility] [place], [address], 08/29/2023 14:12:16 08/28/19 24 08/29/2023 COMP. METAB OLIC PANEL (14) chloride 104 mmol/ L 96-106 Not Available [facility] ([facility]) [address] [facility] [place], [address], 08/29/2023 14:12:16 08/28/19 24 08/29/2023 COMP. METAB OLIC PANEL (14) carbon dioxide, total 22 mmol/ L 20-29 Not Available [facility] ([facility]) [address] [facility] [place], [address], 08/29/2023 14:12:16 08/28/19 24 08/29/2023 COMP. METAB OLIC PANEL (14) calcium 8.9 mg/dL 8.7-10 .3 Not Available [facility] ([facility]) [address] [place], [address], 08/29/2023 14:12:16 08/28/19 24 08/29/2023 COMP. METAB OLIC PANEL (14) protein, total 7.0 g/dL 6.0-8. 5 Not Available [facility] ([facility]) [address] [place], [address], 08/29/2023 14:12:16 08/28/19 24 08/29/2023 COMP. METAB OLIC PANEL (14) albumin 4.4 g/dL 3.9-4. 9 Not Available [facility] ([facility]) [address] [place], [address], 08/29/2023 14:12:16 08/28/19 24 08/29/2023 COMP. METAB OLIC PANEL (14) globulin, total 2.6 g/dL 1.5-4. 5 Not Available [facility] ([facility]) [address] [facility], [place], [address], 08/29/2023 14:12:16 08/28/19 24 08/29/2023 COMP. METAB OLIC PANEL (14) A/G ratio 1.7 1.2-2. 2 Not Available [facility] ([facility]) [address] [facility], [place], [address], 08/29/2023 14:12:16 08/28/19 24 08/29/2023 COMP. METAB OLIC PANEL (14) bilirubin, total 0.5 mg/dL 0.0-1. 2 Not Available [facility] ([facility]) [address] [facility], [place], [address], 08/29/2023 14:12:16 08/28/19 24 08/29/2023 COMP. METAB OLIC PANEL (14) alkaline phosphatase 96 IU/L 44-121 Not Available [facility] ([facility]) [address] [facility], [place], [address], 08/29/2023 14:12:16 08/28/19 24 08/29/2023 COMP. METAB OLIC PANEL (14) AST (SGOT) 20 IU/L 0-40 Not Available [facility] ([facility]) [address] [facility], [place], [address], 08/29/2023 14:12:16 08/28/19 24 08/29/2023 COMP. METAB OLIC PANEL (14) ALT (SGPT) 22 IU/L 0-32 Not Available [facility] ([facility]) [address] [facility] [place], [address], 08/29/2023 14:12:16 08/28/19 24 08/29/2023 CBC, NO DIFFE RENTI AL/PL ATELE T WBC 5.8 x10e3 /uL 3.4-10 .8 Not Available [facility] ([facility]) [address] [facility], [place], [address], 08/29/2023 14:12:17 08/28/1908/29/2023 CBC, NO DIFFE RENTI AL/PL ATELE T RBC 5.30 x10e6 /uL 3.77-5 .28 above high normal Not Available [facility] ([facility]) [address] [facility], [place], [address], 08/29/2023 14:12:17 08/28/19 24 08/29/2023 CBC, NO DIFFE RENTI AL/PL ATELE T hemoglobin 15.1 g/dL 11.1-1 5.9 Not Available [facility] ([facility]) [address] [facility], [place], [address], 08/29/2023 14:12:17 08/28/19 24 08/29/2023 CBC, NO DIFFE RENTI AL/PL ATELE T hematocrit 46.5 % 34.0-4 6.6 Not Available [facility] ([facility]) [address] [place], [address], 08/29/2023 14:12:17 08/28/19 24 08/29/2023 CBC, NO DIFFE RENTI AL/PL ATELE T MCV 88 fL 79-97 Not Available [facility] ([facility]) [address] [place], [address], 08/29/2023 14:12:17 08/28/1908/29/2023 CBC, NO DIFFE RENTI AL/PL ATELE T MCH 28.5 pg 26.6-3 3.0 Not Available [facility] ([facility]) [address] [place], [address], 08/29/2023 14:12:17 08/28/19 24 08/29/2023 CBC, NO DIFFE RENTI AL/PL ATELE T MCHC 32.5 g/dL 31.5-3 5.7 Not Available [facility] ([facility]) [address] [facility], [place], [address], 08/29/2023 14:12:17 08/28/1908/29/2023 CBC, NO DIFFE RENTI AL/PL ATELE T RDW 13.5 % 11.7-1 5.4 Not Available [facility] ([facility]) [address] [facility], [place], [address], 08/29/2023 14:12:17 02/08/2002/11/2024 URINE CULTU RE,CO MPREH ENSIV E urine culture,comp rehensive FINAL REPORT abnormal Not Available [facility] ([facility]) [address] [facility], [place], [address], 02/11/2024 03:06:57 02/08/2002/11/2024 URINE CULTU RE,CO MPREH ENSIV E result 1 COMMEN T abnormal Esche zion a coli, ident ified by an autom ated bioch emica l syste m. Cefaz pastor <=4 ug/mL Cefaz pastor with an MARYCARMEN <=16 predi cts susce ptibi lity to the oral agent s cefac ila, cefdi jero, cefpo doxim e, cefpr ozil, cefur oxime , cepha lexin , and lorac arbef when used for thera py of uncom plica uriel urina ry tract infec tions due to E. coli, Klebs iella pneum oniae , and Prote us mirab ilis. 3,000 Colon ies/m L Not Available [facility] ([facility]) [address] [facility], [place], [address], 02/11/2024 03:06:57 02/08/2002/11/2024 URINE CULTU RE,CO MPREH ENSIV E antimicrobia l susceptibili ty COMMEN T S = Susce ptibl e; I = Inter media te; R = Resis tant P = Posit khari; N = Negat khari MICS are expre ssed in micro grams per mL Antib iotic RSLT# 1 RSLT# 2 RSLT# 3 RSLT# 4 Amoxi cilli n/Cla vulan ic Acid S Ampic illin R Cefep jose S Ceftr iaxon e S Cefur oxime S Cipro floxa ghdaa S Ertap enem S Genta micin S Imipe nem S Levof loxac in S Merop enem S Nitro furan toin S Piper acill in/Ta zobac van S Tetra cycli ne S Tobra mycin S Trime thopr im/Knight lfa S Not Available [facility] ([facility]) [address] [facility], [place], [address], 02/11/2024 03:06:57 02/08/2002/08/2024 urina lysis , dipst ick Leukocytes Trace Not Available In-Offi ce Order Internal Use Only DO Not Attach Compendium DO Not Attach Compendium, Do Not Delete/merge, [id number] 02/08/2024 10:52:50 02/08/2002/08/2024 urina lysis , dipst ick Nitrite negati ve Not Available In-Office Order Internal Use Only DO Not Attach Compendium DO Not Attach Compendium, Do Not Delete/merge, [id number] 02/08/2024 10:52:50 02/08/2002/08/2024 urina lysis , dipst ick Urobilinogen .2 Not Available In-Of fice Order Internal Use Only DO Not Attach Compendium DO Not Attach Compendium, Do Not Delete/merge, [id number] 02/08/2024 10:52:50 02/08/2002/08/2024 urina lysis , dipst ick Protein 30 Not Available In-Office Order Internal Use Only DO Not Attach Compendium DO Not Attach Compendium, Do Not Delete/merge, [id number] 02/08/2024 10:52:50 02/08/2002/08/2024 urina lysis , dipst ick pH 5.0 Not Available In-Office Order Internal Use Only DO Not Attach Compendium DO Not Attach Compendium, Do Not Delete/merge, 02/08/2024 10:52:50 02/08/2002/08/2024 urina lysis , dipst ick Blood Large Not Available In-Office Order Internal Use Only DO Not Attach Compendium DO Not Attach Compendium, Do Not Delete/merge, 02/08/2024 10:52:50 02/08/2002/08/2024 urina lysis , dipst ick Specific Gervais 1.030 Not Available In-Off ice Order Internal Use Only DO Not Attach Compendium DO Not Attach Compendium, Do Not Delete/merge, 02/08/2024 10:52:50 02/08/2002/08/2024 urina lysis , dipst ick Ketone Negati ve Not Available In-Office Order Internal Use Only DO Not Attach Compendium DO Not Attach Compendium, Do Not Delete/merge, 02/08/2024 10:52:50 02/08/2002/08/2024 urina lysis , dipst ick Bilirubin Negati ve Not Available In-Office Order Internal Use Only DO Not Attach Compendium DO Not Attach Compendium, Do Not Delete/merge, 02/08/2024 10:52:50 02/08/2002/08/2024 urina lysis , dipst ick Glucose Negati ve Not Available In-Office Order Internal Use Only DO Not Attach Compendium DO Not Attach Compendium, Do Not Delete/merge, 02/08/2024 10:52:50 02/08/2002/08/2024 urina lysis , dipst ick Appearance Slight ly Cloudy Not Available In-Office Order Internal Use Only DO Not Attach Compendium DO Not Attach Compendium, Do Not Delete/merge, 02/08/2024 10:52:50 02/08/2002/08/2024 urina lysis , dipst ick Color Yellow Not Available In-Office Order Internal Use Only DO Not Attach Compendium DO Not Attach Compendium, Do Not Delete/merge, 02/08/2024 10:52:50 03/07/20 23 03/07/2023 MAMMO , diagn ostic , digit al, bilat eral No observ ation record ed. [email or web address] [facility] (Radiology) [address] [place], [address], 03/16/2023 11:31:14 03/07/20 23 03/07/2023 US, breas t, unila teral , w/ axill a No observ ation record ed. [facility] [address] [place], [address], 03/16/2023 11:31:15 08/17/19 24 08/15/2023 XR, hip, unila teral , 2 or 3 view No observ ation record ed. [email or web address] [facility] [address] [place], [address], 08/24/2023 08:48:16 08/28/19 24 02/23/2019 CT, head + brain , w/o contr ast No observ ation record ed. Not Available 2023 12:30:33 08/28/19 MRI, brain , w/o contr ast No observ ation record ed. [email or web address] Not Available 08/15 10:17:22 09/25/19 24 09/25/2023 MRI, brain , w/wo contr ast No observ ation record ed. [facility] [address] [place], [address], 09/27/2023 15:14:48 Result Notes None recorded. Problems Name Problem SNOMED Code Status Onset Date Resolution Date Notes Provider Name and Address Organization Details Recorded Time Hypertensiv e disorder 39240634 Active 2018 Nunu Doan APN, FNP-C Attn: Trena kaplan,[address] [place], [address], [facility] - [facility] 0 11:54:36 Tension-typ e headache 445925910 Active 2018 Nunu Doan APN, FNP-C Attn: Trena kaplan,[address] [place], [address], [place] [facility] 0 11:54:36 Anxiety 90748500 Active 2017 Nunu Doan APN, MORGUE LIBRARIAN-C Attn: Accountin g,[address] [facility], [place], [address], [place] [facility] 0 11:54:36 Generalized anxiety disorder 11668429 Active 2019 Nunu Doan APN, MORGUE LIBRARIAN-C Attn: Accountin g,[address] [facility], [place], [address], [place] [facility] 0 12:15:41 Transient memory loss Active 2019 Nunu Doan APN, MORGUE LIBRARIAN-C Attn: Maurain g,[address] [facility], [place], [address], [place] [facility] 0 12:15:42 Pain of right ankle joint 4748767507106 9106 Active 2020 Nunu Doan APN, MORGUE LIBRARIAN-C Attn: Trena rosaura,[address] [facility], [place], [address], [place] [facility] 1 11:18:28 Dysfunction of eustachian tube 61908405 Active 2020 Nunu Doan APN, MORGUE LIBRARIAN-C Attn: Maurain g,[address] [facility], [place], [address], [place] - [facility] 1 11:21:32 Vitamin D deficiency 75231795 Active 2020 Nunu Doan APN, MORGUE LIBRARIAN-C Attn: Maurain g,[address] [facility], [place], [address], [place] [facility] 1 11:31:05 Obesity 190462698 Active 2020 Nunu Doan APN, MORGUE LIBRARIAN-C Attn: Maurain g,[address] [facility], [place], [address], [place] - [facility] 1 17:17:23 Pain in right hip joint 2532461143583 02 Active 2020 Nunu Doan APN, MORGUE LIBRARIAN-C Attn: Trena g,[address] [facility], [place], [place], [address] [place] [address] 2, [facility] - [facility] 1 17:17:25 Fatigue 02523586 Active 2021 Nunu Doan PROTOTYPE DEICER ASSEMBLER, MORGUE LIBRARIAN-C Attn: Trena g,[address] [facility], [place], [place], [address] [place] [address] 2, [facility] - [facility] 2 16:05:52 Change in skin lesion 158439462 Active 2021 Nunu Doan PROTOTYPE DEICER ASSEMBLER, MORGUE LIBRARIAN-C Attn: Trena g,[address] [facility], [place], [place], [address] [place] [address] 2, [facility] 2 10:43:54 Palpitation s 22343671 Active 2021 Nunu Doan APN, MORGUE LIBRARIAN-C Attn: Trena g,2040 [facility], [place], [place], [address] [place] [address] 2, [facility] 2 10:51:48 Dyspnea 302168256 Active 2022 Nunu Doan APN, MORGUE LIBRARIAN-C Attn: Trena rosaura,2040 [facility], [place], [place], [address] [place] [address] 2, [facility] 3 11:18:50 Hyperlipide yamilet 49386024 Active 2022 Nunu Doan APN, M[employer] LIBRARIAN-C Attn: Trena g,2040 [facility], [place], [place], [address] [place] [address] 2, [facility] 3 11:31:09 History of pulmonary embolus 446344034 Active 2022 Nunu Doan APN, [employer] LIBRARIAN-C Attn: Trena g,2040 [facility], [place], [place], [address] [place] [address] 2, [facility] 3 22:36:49 Mood disorder 17704877 Active 2022 Nunu Doan PROTOTYPE DEICER ASSEMBLER, [employer]ARIAN-C Attn: Trena kaplan,[address], [place], [address], [facility] 3 11:00:35 Problem Notes None recorded. Procedures Surgical History Date Name Laterality Status Provider Name and Address Organization Details Recorded Time 09/02/19 11 Cholecystectomy completed Birdie Watkins [facility] 10/04/2018 10:25:41 04/17/18 92 Tubal Ligation completed Birdie Watkins [facility] 10/04/2018 10:25:20 Appendectomy completed Birdie Watkins [facility] 10/04/2018 10:24:59 Remove tonsils and adenoids completed Birdie Watkins [facility] 10/04/2018 10:25:06 Imaging Results Imaging Date Name Status LastModified by Organiz ation Details LastModified Time 03/07/2023 MAMMO, diagnostic, digital, bilateral completed [facility] (Radiology) [address] [place] [address], [address], 03/16/2023 11:31:14 03/07/2023 US, breast, unilateral, w/ axilla completed [address], [address], 03/16/2023 11:31:15 08/15/2023 XR, hip, unilateral, 2 or 3 view completed [address], [address], 08/24/2023 08:48:16 02/23/2019 CT, head + brain, w/o contrast completed [email or web address] Information not available 08/28/2023 12:30:33 08/28/2023 MRI, [facility], w[email or web address] 08/30/2023 10:17:22 09/25/2023 MRI, brain, w/wo contrast completed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 68540644 F41.1 -r/t family issues and her own healthrequ ests benzos again, will refer to psychiatry -possible cause for transient global amnesia.-s till stressed about his son who tried to kill himself, son has alpha 1 antitrypsi nwill also refer to BH- worse that her brother Obesity 267057582 E66.9 advised low fat, low cholestero l diet, regular exercise and weight reduction. Bereavement 71961461 Z63 .4 lost brother this past year Dyspnea 244877581 R06.00 prn inhaler Mammography abnormal 168 452294 R92.8 Screening for malignant neoplasm of colon 973148318 Z12.11 last colonoscop y was July 2010will order cologuard, has not done, will now order FOBT Hyperlipidemia 16415346 E78.5 increased, will check lab Endocrine/ metabolic screening 355413051 Z13.552 [id number] Nunu Doan APN, KAITLYNN [facility] (Adult Med) [address] [place] [address] 08/18/2022 13:52:53 08/23/2022 10:10:46 Urinary symptoms 798289013 R39.9 urine dip pos leuk, will send for culture and notify pt if abx change needed, will start macrobid; dwp to increase fluids and RTO if increase in pain or fever or other changes occur. Hospital i npatient stay within past 30 days 4887101425 106 Z76.89 records reviewed Hypertensive disorder 38 673242 I10 cont losartan 50 mg & amlodipine 5 mgtaking clonidine 1/2 tablet qhs- may take whole or half-advis ed to check bp bid and call next week with results Memory impairment 158174 [address] results and advised to followup with neuro Change in skin lesion 39 9385801 L98.9 hyperpigme nted lesion to lateral corner left eye growing, will refer to derm Obesity 203365697 E66.9 advised low fat, low cholestero l diet, regular exercise and weight reduction. [id number] Nunu Doan APN, KAITLYNN [facility] (Adult Med) [address] [place] [address] 09/14/2022 15:07:55 09/15/2022 08:24:46 Hypertensive disorder 69159235 I10 cont losartan 50 mg & amlodipine 5 mgtaking 0.1mg clonidine 0.5 to 1 tablet qhs- PRN - was taking losartan green oval- no issues with that one, white pill has caused it to be too low- spoke with pharmacist and he thought it was the filler; -took the green last night and is still low today, dwp cutting in half and will order cuff Obesity 212995367 E66.9 advised low fat, low cholestero l diet, regular exercise and weight reduction. Mood disorder 87658446 F 41 hx of zoloft, other meds have made her sick in past, willing to trial Cymbalta in low dose [id number] Nunu Doan APN, KAITLYNN Rivero (Adult Med) [address] [place] [address] 12/06/2022 11:33:35 12/07/2022 09:39:08 Hospital inpatient stay within past 30 days 1416595350 106 Z76.89 records reviewed History of pulmonary embolus 835535054 Z86.711 cont with blood thinner and ASA as planned, notify office if any bleeding Obesity 456501250 E66.9 advised low fat, low cholestero l diet, regular exercise and weight reduction. Hypertensive disorder 38 610612 I10 cont losartan 50 mg & amlodipine 5 mgtaking 0.1mg clonidine 0.5 to 1 tablet qhs- PRNimprove d, no dizziness [id number] Nunu Doan APN, KAITLYNN Rivero (Adult Med) [address] [place] [address] 01/02/2023 10:12:42 01/03/2023 13:10:41 Dysuria 73749698 R30.9 urine dip pos leuk, will send for culture and notify pt if abx change needed, will start macrobid; dwp to increase fluids and RTO if increase in pain or fever or other changes occur. History of pulmonary embolus 308334199 Z86.711 cont with blood thinner and ASA as planned, notify office if any bleeding Obesity 680156574 E66.9 advised low fat, low cholestero l diet, regular exercise and weight reduction. Hypertensive disorder 38 383338 I10 cont losartan 50 mg (half tablet) & amlodipine 5 mgimproved , no dizziness Screening for malignant neoplasm of colon 440181766 Z12.11 last colonoscop y was July 2010will order cologuard, has not done, will now order FOBT Administra tion of pneumococcal vaccine 73492507 Z23 Adult heal th examination 514885316 Z00.01 Encouraged routine [employer], vision, dental exams, well balanced diet. [id number] Nunu Doan APN, FNP-C [place] (Adult Med) [address] [place] [address] 04/03/2023 10:21:34 04/04/2023 12:46:25 History of pulmonary embolus 153036177 Z86.711 cont with blood thinner and ASA as planned, notify office if any bleeding Obesity 695406549 E66.9 advised low fat, low cholestero l diet, regular exercise and weight reduction. Hypertensive disorder 38 114761 I10 cont losartan 50 mg (half tablet) & amlodipine 5 mgimproved , no dizziness Mood disorder 63686987 F 41 hx of zoloft, other meds have made her sick in past, willing to trial Cymbalta in low dose Screening for malignant neoplasm of colon 689480023 Z12.11 last colonoscop y was July 2010will order cologuard, has not done, will now order FOBT [id number] Nunu Doan APN, FNP-C [place] (Adult Med) [address] [place] [address] 08/10/2023 16:01:21 08/11/2023 11:19:49 Hypertensive disorder 24487975 I10 cont losartan 50 mg (half tablet) & amlodipine 5 mgimproved , no dizziness History of pulmonary embolus 599892863 Z86.711 cont with blood thinner and ASA as planned, notify office if any bleedingco nt xarelto 10 mg Obesity 296911043 E66.9 advised low fat, low cholestero l diet, regular exercise and weight reduction. 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; o/w normal MRI brain w/o contrast-w ill order new MRI and refer to neuro Recurrent falls 12915834 2 R29.6 increasing falls, sidewalk at home is not level, recent fall did not have LOC, would like cane, dwp cost vs ordering from vendor, she will buy at local store Deviated nasal septum 12 0569304 J34.2 from recent fall, possible fracture, no pain now, I can breath ok dwp referral if worsening [id number] Nunu Doan APN, KAITLYNN Rivero (Adult Med) [address] [place] [address] 02/08/2024 10:45:55 02/09/2024 14:20:59 Dysuria 10002867 R30.9 urine dip pos leuk, will send for culture and notify pt if abx change needed, will start macrobid; dwp to increase fluids and RTO if increase in pain or fever or other changes occur. Hypertensive disorder 38 213880 I10 cont losartan 50 mg (half tablet) & amlodipine 5 mgimproved , no dizziness History of pulmonary embolus 913335459 Z86.711 cont with blood thinner and ASA as planned, notify office if any bleedingco nt xarelto 10 mg Obesity 822813705 E66.9 advised low fat, low cholestero l diet, regular exercise and weight reduction. Mood disorder 85253013 F 41 hx of zoloft, other meds have made her sick in past, willing to trial Cymbalta- well tolerated 20 mg Pain in ri ght hip joint 9227899107 08275 M25.551 right hip, hx of displasiac ont with canept requests handicap placarddwp dexa scan, pt believes she has done one in past, will look for records Recurrent falls 71253211 2 R29.6 frequent fallsdwp safetymost recent fall started around the same time as uti symptoms Administra tion of influenza vaccine 52554360 Z23 [id number] Nunu Doan APN, KAITLYNN Rivero (Adult Med) [address] [place] [address] 06/11/2024 10:55:24 06/12/2024 13:14:19 Hypertensive disorder 43798641 I10 cont losartan 25 mg & amlodipine 5 mgimproved , no dizziness History of pulmonary embolus 364540881 Z86.711 cont with blood thinner and ASA as planned, notify office if any bleedingst opped xarelto 10 mg prior to last apt, pt does not want to take anymore; but will cont ASA 81 mg. Obesity 780867362 E66.9 advised low fat, low cholestero l diet, regular exercise and weight reduction. Mood disorder 61346587 F 41 hx of zoloft, other meds have made her sick in past, willing to trial Cymbalta- well tolerated 20 mg Pain in ri ght hip joint 1312461901 06446 M25.551 right hip, hx of displasiac ont with canept requests handicap placarddwp dexa scan, pt believes she has done one in past, will look for records Recurrent falls 33808219 2 R29.6 frequent falls- most recent fall started around the same time as uti symptomsdw p safety concerns at home Screening for malignant neoplasm of colon 698091449 Z12.11 last colonoscop y was July 2010order FOBT Health Concerns Section Related Observation LastModified by Organization Detai ls LastModified Time None Recorded Concern Status LastModified by Organization Details LastModified Time None Recorded Advance Directives Directive N: Payers Encounter Date Sequence Insurance Name Policy Number Policy Hall Covered Member ID Hall Member ID Guarantor Name 04/03/2023 1 [employer] BETTER [employer] - PREMIER PLAN - DUAL (MEDICARE - MEDICAID REPLACEMENT HMO) Mary Gillis [id number] Mary Gillis 08/10/2023 1 [place] Gillis [id number] Mary Gillis 08/10/2023 2 [place] Mary Gillis [id number] Mary Carlin 08/28/2023 1 [place] Mary Gillis [id number] Mary Gillis 02/08/2024 1 [place] Mary Gillis [id number] Mary Gillis 06/11/2024 1 [employer] - PRIME (MEDICARE REPLACEMENT/A DVANTAGE - HMO) [id number] Mary Gillis [id number] Mary Gillis Notes Date Note Type Note Provider Name and Address Organization Details Recorded Time 04/03/2023 text/html Hypertension F/UReported bypatient.Associat ed Symptoms:no lightheadedness; no chest pain; no shortness of breath; no palpitations; no edema; no calf pain with exertion Lifestyle:limiting /avoiding salt;not exercising regularly Medications:taking medications as directed; no side effects from medication currently taking Xarelto 20mg prescribed by ER- got letter from ins stating they don't cover. Nunu Doan APN, FNP-C Attn: Accounting[address] [facility], [place], [address], [facility] 04/03/2023 11:08:41 08/10/2023 text/html Hypertension F/UReported bypatient.Associat ed Symptoms:no lightheadedness; no chest pain; no shortness of breath; no palpitations; no edema; no calf pain with exertion Lifestyle:limiting /avoiding salt;not exercising regularly Medications:taking medications as directed; no side effects from medication Pt fell again on 07/30 on gravel on her knees- now her knees are sore and right hip feels numb and states she is unable to lay on her right side now.pt states she goes back and forth between the 10mg and 20mg of xarelto. Unsure what she is supposed to be on. Nunu Doan APN, FNP-C Attn: Accounting[address] [facility], [place], [address], [facility] 08/10/2023 16:28:39 08/28/2023 text/html Pt states she hill d an MRI on her head and they found a cyst approx 2016.wondering if the cyst has something to do with her falling Nuun Doan APN, FNP-C Attn: Accounting[address] [facility], [place], [address], [facility] 08/28/2023 14:13:11 02/08/2024 text/html Hypertension F/UReported bypatient.Associat ed Symptoms:no lightheadedness; no chest pain; no shortness of breath; no palpitations; no edema; no calf pain with exertion Lifestyle:limiting /avoiding salt;not exercising regularly Medications:taking medications as directed; no side effects from medication pt c/o dysuria and pressure for 3 days. taking cranberry w/ manoswants handicap placard- using a cane to walk Nunu Doan APN, FNP-C Attn: [address] [place], [address], [facility] 02/08/2024 14:35:29 06/11/2024 text/html Hypertension F/UReported bypatient.Associat ed Symptoms:no lightheadedness; no chest pain; no shortness of breath; no palpitations; no edema; no calf pain with exertion Lifestyle:limiting /avoiding salt;not exercising regularly Medications:taking medications as directed; no side effects from medication Nunu Doan APN, FNP-C Attn: [address]ing[address] [place], [address], [facility] 06/11/2024 11:45:20 OBGyn Episode Ob Episode Information Episode Created Date Number of Fetuses Patient Bloodtype Patient rh Status Prepregnancy Weight lbs Domestic Partner Domestic Partner Phone Father Name Information Resources Director Status 10/31/19 19 1 CLOSED Fetus Data First Name Last Name Admitted to NICU Weight (g) Sex Living Outcome Pediatric Complications Fetus ID Race Codes Race Delivery Type F Full Term [id number] Vaginal Yoni Calculation Initial Yoni Date Initial Exam Date Initial Exam Provider Initial Ultrasound Date Last Menstrual Period Date Ultra Sound Weeks Gestation 0 Eighteen To Twenty Week Yoni Update Ultra Sound Date Fundal Height At Umbil Quickening Date Ultra Sound Latest Weeks Gestation Final Yoni Confirmed By Final Yoni Confirmed Date Final Yoni Date Ultra Sound Latest Days Gestation 0 0 Menstrual History Last Menstrual Date Menses Monthly On Bcp Conception Prior Menses Frequency Hcg Plus Date Menarche Onset Age Delivery Information Delivery Date Delivery Type Labor Anesthesia Weeks Gestation Incision Type Labor Labor Length Hrs Delivered By Post Complications Tubal Sterilization Discharge Date Comments 6 Discharge Information Feeding Method Contraceptive Method Maternal HG B and HCT Levels Ob Episode Information Episode Created Date Number of Fetuses Patient Bloodtype Patient rh Status Prepregnancy Weight lbs Domestic Partner Domestic Partner Phone Father Name Information Resources Director Status 10/31/19 19 1 CLOSED Fetus Data First Name Last Name Admitted to NICU Weight (g) Sex Living Outcome Pediatric Complications Fetus ID Race Codes Race Delivery Type , Spontane ous [id number] Yoni Calculation Initial Yoni Date Initial Exam Date Initial Exam Provider Initial Ultrasound Date Last Menstrual Period Date Ultra Sound Weeks Gestation 0 Eighteen To Twenty Week Yoni Update Ultra Sound Date Fundal Height At Umbil Quickening Date Ultra Sound Latest Weeks Gestation Final Yoni Confirmed By Final Yoni Confirmed Date Final Yoni Date Ultra Sound Latest Days Gestation 0 0 Menstrual History Last Menstrual Date Menses Monthly On Bcp Conception Prior Menses Frequency Hcg Plus Date Menarche Onset Age Delivery Information Delivery Date Delivery Type Labor Anesthesia Weeks Gestation Incision Type Labor Labor Length Hrs Delivered By Post Complications Tubal Sterilization Discharge Date Comments 4 Discharge Information Feeding Method Contraceptive Method Maternal HG B and HCT Levels Ob Episode Information Episode Created Date Number of Fetuses Patient Bloodtype Patient rh Status Prepregnancy Weight lbs Domestic Partner Domestic Partner Phone Father Name Information Resources Director Status 10/31/19 19 1 CLOSED Fetus Data First Name Last Name Admitted to NICU Weight (g) Sex Living Outcome Pediatric Complications Fetus ID Race Codes Race Delivery Type M Full Term [id number] Vaginal Yoni Calculation Initial Yoni Date Initial Exam Date Initial Exam Provider Initial Ultrasound Date Last Menstrual Period Date Ultra Sound Weeks Gestation 0 Eighteen To Twenty Week Yoni Update Ultra Sound Date Fundal Height At Umbil Quickening Date Ultra Sound Latest Weeks Gestation Final Yoni Confirmed By Final Yoni Confirmed Date Final Yoni Date Ultra Sound Latest Days Gestation 0 0 Menstrual History Last Menstrual Date Menses Monthly On Bcp Conception Prior Menses Frequency Hcg Plus Date Menarche Onset Age Delivery Information Delivery Date Delivery Type Labor Anesthesia Weeks Gestation Incision Type Labor Labor Length Hrs Delivered By Post Complications Tubal Sterilization Discharge Date Comments 8 Discharge Information Feeding Method Contraceptive Method Maternal HG B and HCT Levels Ob Episode Information Episode Created Date Number of Fetuses Patient Bloodtype Patient rh Status Prepregnancy Weight lbs Domestic Partner Domestic Partner Phone Father Name Information Resources Director Status 10/31/19 19 1 CLOSED Fetus Data First Name Last Name Admitted to NICU Weight (g) Sex Living Outcome Pediatric Complications Fetus ID Race Codes Race Delivery Type M Full Term [id number] Vaginal Yoni Calculation Initial Yoni Date Initial Exam Date Initial Exam Provider Initial Ultrasound Date Last Menstrual Period Date Ultra Sound Weeks Gestation 0 Eighteen To Twenty Week Yoni Update Ultra Sound Date Fundal Height At Umbil Quickening Date Ultra Sound Latest Weeks Gestation Final Yoni Confirmed By Final Yoni Confirmed Date Final Yoni Date Ultra Sound Latest Days Gestation 0 0 Menstrual History Last Menstrual Date Menses Monthly On Bcp Conception Prior Menses Frequency Hcg Plus Date Menarche Onset Age Delivery Information Delivery Date Delivery Type Labor Anesthesia Weeks Gestation Incision Type Labor Labor Length Hrs Delivered By Post Complications Tubal Sterilization Discharge Date Comments 2 Discharge Information Feeding Method Contraceptive Method Maternal HG B and HCT Levels
--- NOTE | 2024-07-21 11:02 | ED.GENADULT ---
HPI - General Adult General Chief complaint: Dizziness Stated complaint: Dizziness/Headache/Ear Problem/Falling Time Seen by Provider: 07/21/24 11:10 Source: patient, RN notes reviewed and old records reviewed Mode of arrival: ambulatory Limitations: no limitations History of Present Illness HPI narrative: 69year old female presents to express care with complaints of episodes of dizziness and also feelings of room spinning for the past week. Patient reports that she fell in the driveway on Monday onto her knees with abrasion noted to her left knee with bruising anterior aspect. Patient reports that she just feels like her equilibrium if off. 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 Patient reports some fullness sensation to her right ear wonders if she could have inner ear infection. MD complaint: dizziness, vertigo Onset (ago): week(s) (1) Severity: moderate Treatments prior to arrival: none Related Data Home Medications ?Medication ?Instructions ?Recorded ?Confirmed ?Last Taken ?Type amlodipine 5 mg tablet 5 mg PO DAILY 11/18/20 11/22/22 Unknown History cholecalciferol (vitamin D3) 125 125 mcg PO DAILY 11/18/20 11/22/22 Unknown History mcg (5,000 unit) tablet (Vitamin D3) losartan 50 mg tablet 50 mg PO DAILY 11/18/20 11/22/22 Unknown History aspirin 81 mg capsule 81 mg PO DAILY 05/05/22 11/22/22 Unknown History duloxetine 20 mg capsule,delayed mg PO 07/21/24 Unknown History release Allergies Allergy/AdvReac Type Severity Reaction Status Date / Time codeine Allergy Intermediate Agitated Verified 11/22/22 11:33 nitrofurantoin (From Allergy Mild Fast Verified 11/22/22 11:33 Macrobid) heartbeat Review of Systems Review of Systems: CONSTITUTIONAL: Denies fever, chills, or sweats. EYES: Denies visual changes, redness, or discharge. ENT: Denies rhinorrhea, congestion, sore throat,states fullness sensation of right ear . CARDIOVASCULAR: Denies chest pain, palpitations, or edema. RESPIRATORY: Denies cough or dyspnea. GASTROINTESTINAL: Denies abdominal pain, nausea, vomiting, or diarrhea. GENITOURINARY: Denies dysuria or hematuria. SKIN: Denies rash or itching. MUSCULOSKELETAL: Denies back pain,reports some bilateral knee discomfort from fall with abrasion left knee with bruising,, or myalgia. NEUROLOGIC: Reports some headache,feelings of dizziness and also vertigo, numbness, or weakness. PSYCHIATRIC: positive for history of anxiety or depression. All systems reviewed & are unremarkable except as noted in HPI and below PMFSH Past Medical History Medical History (Updated 07/21/24 @ 12:05 by Lianna Hogue NP) Post-menopausal Anxiety Depression Arthritis Endometriosis GERD (gastroesophageal reflux disease) HTN (hypertension) Migraines Seasonal allergies Surgical History Surgical History History of cholecystectomy History of appendectomy History of tubal ligation Family History Family History Mother Family history of lung cancer Father Family history of emphysema Sibling Family history of emphysema Social History Social History (Updated 07/21/24 @ 11:41 by Lianna Hogue NP) Smoking status: Never smoker Alcohol intake: never Substance use: never Living arrangements: with family Gender identity (if verbalized by the patient): Female Comments At time of signature, agree with nursing past medical, surgical, social and family history. There is no relevant family history pertinent to the presenting complaint Exam Narrative: GENERAL: Well-appearing,looks older than stated age well-nourished, and in no acute distress. HEAD: Normocephalic, atraumatic. EYES: PERRLA and EOMI.no nystagmus ENT: Nares clear, no rhinorrhea or epistaxis. Mucous membranes moist.Right TM with some fluid noted, no redness noted, Left TM normal with brisk light reflex, throat pink with no swelling tonsils absent. NECK: Supple. no lymphadenopathy CHEST: Clear to auscultation. No respiratory distress. no cough noted SAO2 96% on room air HEART: Regular rate and rhythm. No murmur heard. Normal peripheral pulses. ABDOMEN: Soft, nontender, nondistended, normal active bowel sounds. EXTREMITIES: Normal range of motion. No edema. SKIN: Warm, dry, no rash. NEURO: No focal deficits. Alert and oriented x3. gait steady cranial nerves intact with no deficit noted, see orthostatic blood pressure readings Course Course Emergency Course: Patient is aware of diagnosis, understands and agrees to treatment plan.? Anticipatory guidance given.? Patient agrees to follow-up as directed and is aware of reasons to seek care at the emergency department. Portions of this record may have been created with voice recognition software Level of Care: Express Care Visit Vital Signs Vital signs: Vital Signs Temperature 36.2 C L 07/21/24 11:21 Pulse Rate 78 07/21/24 11:21 Respiratory Rate 16 07/21/24 11:21 Blood Pressure 128/75 07/21/24 11:21 Pulse Oximetry 96 07/21/24 11:21 Oxygen Delivery Room Air 07/21/24 11:21 Temperature 36.2 C L 07/21/24 11:21 Pulse Rate 93 07/21/24 11:32 Respiratory Rate 16 07/21/24 11:21 Blood Pressure 91/49 L 07/21/24 11:32 Pulse Oximetry 96 07/21/24 11:21 Oxygen Delivery Room Air 07/21/24 11:21 Reviewed Medical Decision Making MDM Narrative Medical decision making narrative: Exam findings and imaging show no acute concerns or changes; patient is non-toxic appearing and is in no distress.? Patient is appropriate for outpatient treatment and follow-up Differential Diagnosis Differential Diagnosis: orthostatic hypotension, dizziness, episodes of vertigo, dehydration, eustachian tube dysfunction. Medical Records Medical records reviewed: Yes I reviewed the external patient's medical records. Vital Signs Vital Signs: Vital Signs Temperature 36.2 C L 07/21/24 11:21 Pulse Rate 78 07/21/24 11:21 Respiratory Rate 16 07/21/24 11:21 Blood Pressure 128/75 07/21/24 11:21 Pulse Oximetry 96 07/21/24 11:21 Oxygen Delivery Room Air 07/21/24 11:21 Temperature 36.2 C L 07/21/24 11:21 Pulse Rate 93 07/21/24 11:32 Respiratory Rate 16 07/21/24 11:21 Blood Pressure 91/49 L 07/21/24 11:32 Pulse Oximetry 96 07/21/24 11:21 Oxygen Delivery Room Air 07/21/24 11:21 Lab Data Lab results reviewed: Yes I reviewed the patient's lab results. Lab results narrative: Urine dip glucose negative bilirubin negative ketone negative specific greater than or equal to 1.030 blood negative, pH 5.5, protein trace, urobilinogen 0.2, nitrate negative, leukocyte negative Fingerstick glucose 101 Labs: Lab Results 07/21/24 07/21/24 Range/Units 11:36 11:46 POC Capillary Glucose 101 (65-105) mg/dl POC Urine Color Dark POC Urine Clarity Clear POC Urine pH 5.5 POC Ur Specif [place] 1.030 POC Urine Protein Trace (Negative) POC Ur Glucose (UA) Negative (Negative) POC Urine Ketones Negative (Negative) POC Urine Blood Negative (Negative) POC Urine Nitrite Negative (Negative) POC Urine Bilirubin Negative (Negative) POC Urine Urobilinogen 0.2 POC U Leukocyte Esteras Negative (Negative) reviewed Critical Care Time Critical Care Time Critical Care Time: No Discharge Plan Discharge Clinical Impression: Orthostatic hypotension, Dysfunction of right eustachian tube Patient Disposition: Home, Self-Care Condition: Stable Instructions: Antibiotic Form, Barotrauma (ED), Hypotension (ED) Additional Instructions: Make sure you are drinking plenty of fluids daily 6 to 8 glasses of liquids daily recommended Make all position changes slowly, sit on the side of bed for at least 5-10 minutes before arising from bed, arise from sitting slowly. Prednisone taper as prescribed Zyrtec or Claritin or [place] daily for any sinus congestion or pressure, use Coricidin brand decongestant Monitor blood pressure at home daily at least 2 times and keep record Call your PCP for appointment tomorrow for follow up and to get repeat scan of head and to see Neurology If your symptoms persist, change or worsen significantly before you can contact your personal physician then please, without delay, go to the emergency department for further evaluation. Follow-up with PCP in 7-10 days or sooner if needed Follow up with PCP soon in regards to your blood pressure which is elevated above threshold for referral. Blood pressure above 120/80 may indicate pre-hypertension. blood pressure 128/75 Patient Language: [place] Prescriptions: New prednisone 10 mg tablet 10 mg PO DIRECTED Qty: 21 0RF Rx Instructions: see taper instructions 6 tabs day 1, 5 tabs day 2, 4 tabs day 3, 3 tabs day 4, 2 tabs day 5, 1 tab day 6 meclizine 25 mg tablet 25 mg PO TID PRN (Reason: dizziness) Qty: 30 0RF No Action losartan 50 mg Tablet 50 mg PO DAILY amlodipine 5 mg Tablet 5 mg PO DAILY cholecalciferol (vitamin D3) [Vitamin D3] 125 mcg (5,000 unit) Tablet 125 mcg PO DAILY aspirin 81 mg Capsule 81 mg PO DAILY albuterol sulfate 90 mcg/actuation HFA aerosol inhaler 2 puff INHALATION QID PRN (Reason: shortness of breath or wheezing) Qty: 8 0RF duloxetine 20 mg capsule,delayed release(DR/EC) PO Follow-up/Referrals: Casillas,Nunu Ladd APN [Primary Care Provider] - Time of Disposition: 12:08 Quality [place] Coma Scale Eyes: Open Verbal: Oriented and Alert Motor: Follows Commands [place] Coma Total Score: 15
[2024-07-21 11:21] VITALS: BP 128/75; PULSE 78; RESP 16; TEMP 36.2; O2SAT 96
[2024-07-21 11:30] VITALS: BP 127/76; PULSE 77
[2024-07-21 11:31] VITALS: BP 118/64; PULSE 86
[2024-07-21 11:32] VITALS: BP 91/49; PULSE 93
[2024-07-21 11:40] LABS: Glucose Point of Care 101 mg/dl (65-105)
[2024-07-21 11:53] LABS: EDUAAPPEAR Clear; EDUABILI Negative (Negative); EDUABLOOD Negative (Negative); EDUACOLOR1 Dark; EDUAGLUCOSE Negative (Negative); EDUAKETONE Negative (Negative); EDUALEUKO Negative (Negative); EDUANITRATE Negative (Negative); EDUAPH 5.5; EDUAPROTEIN Trace (Negative); EDUAUROBILI 0.2
== END 2024-07-21 12:15 | disposition home or self-care (01) ==
PROVIDERS: Emergency Provider Registered Nurse; PCP Nurse Practitioner Family
DX: I95.1 Orthostatic hypotension (principal); H69.91 Unspecified Eustachian tube disorder, right ear; I10 Essential (primary) hypertension; K21.9 Gastro-esophageal reflux disease without esophagitis; N80.9 Endometriosis, unspecified; M19.90 Unspecified osteoarthritis, unspecified site; Z79.82 Long term (current) use of aspirin
CPT/HCPCS: 81003; 82948; 99213; G0463